=== PATIENT | female | born 2000 | race Caucasian/White ===

== ENCOUNTER 2019-03-08 22:09 | Emergency (ER) | payer OTHER ==
--- OUTSIDE RECORDS SUMMARY | 2019-03-08 22:31 | XMS REPORT | Summary of Care ---
:2000 Author Organization [facility] Address [address] [place] [address] Care Team Providers Name Role Phone Evans Arnold MD Primary Care Provider Reason for Visit Reason Comments Gynecologic Exam Encounter Details Date Type Department Care Team Description 01/27/2019 Office Visit [facility] Celeste Alexander Well woman exam (Primary Dx); Bebe Hartman PRINTING BINDERY ASSISTANT Encounter for surveillance of contraceptive pills [address] [place] [address] [place] [address] [phone] Allergies No Known Allergiesdocumented as of this encounter (statuses as of 01/27/2019) Medications Medication Sig Dispensed Refills Start Date End Date Status Levonorgestrel-Ethin Take 1 Tab by mouth 84 Tab 0 01/13/2019 Active yl Estrad 0.1-20 DAILY. Patient needs MG-MCG Oral Tab an appointment before any more refills will be given. documented as of this encounter (statuses as of 01/27/2019) Active Problems No known active problemsdocumented as of this encounter (statuses as of 2018) Immunizations Name Administration Dates Next Due Influenza (IM) Preservative Free 03/26/2018 documented as of this encounter Social History Tobacco Use Types Packs/Day Years Used Date Never Smoker Smokeless Tobacco: Never Used Alcohol Use Drinks/Week oz/Week Comments No 0 Standard drinks or equivalent 0.0 Sex Assigned at Date Recorded Not on file Job Start Date Occupation Industry Not on file Not on file Not on file Travel History Travel Start Travel End No recent travel history available. documented as of this encounter Last Filed Vital Signs Vital Sign Reading Time Taken Comments Blood Pressure 122/80 01/27/2019 1:55 PM EDT Pulse - - Temperature - - Respiratory Rate - - Oxygen Saturation - - Inhaled Oxygen Concentration - - Weight 100.2 kg (221 lb) 01/27/2019 1:55 PM EDT Height 162.6 cm (5' 4") 01/27/2019 1:55 PM EDT Body Mass Index 37.93 01/27/2019 1:55 PM EDT documented in this encounter Progress Notes Celeste Alexander CRNP - 01/27/2019 2:00 PM EDT PATIENT: Fauzia Brody : 2000 DATE OF SERVICE: 01/27/2019 Chief Complaint Patient presents with Gynecologic Exam Subjective SUBJECTIVE: Fauzia Brody is 19-y.o. female who presents for routine women's health maintenance. Patient reports no gynecologic complaints. On oral contraceptive pill and doing well with this. Not SA and neverhas been. Getting in October. 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 History reviewed. No pertinent past medical history. Past Surgical History: Procedure Laterality Date TONSILLECTOMY History reviewed. No pertinent family history. Current Outpatient Medications Medication Sig Levonorgestrel-Ethinyl Estrad 0.1-20 MG-MCG Oral Tab Take 1 Tab by mouth DAILY. Patient needsan appointment before any more refills will be given. No current facility-administered medications for this visit. No Known Allergies Social History Socioeconomic History Marital status: Single Spouse name: Not on file Number of children: Not on file Years of education: Not on file Highest education level: Not on file Occupational History Not on file Social Needs Financial resource strain: Not on file Food insecurity: Worry: Not on file Inability: Not on file Transportation needs: Medical: Not on file Non-medical: Not on file Tobacco Use Smoking status: Never Smoker Smokeless tobacco: Never Used Substance and Sexual Activity Alcohol use: No Alcohol/week: 0.0 standard drinks Drug use: No Sexual activity: Never Lifestyle Physical activity: Days per week: Not on file Minutes per session: Not on file Stress: Not on file Relationships Social connections: Talks on phone: Not on file Gets together: Not on file Attends taoism service: Not on file Active member of club or organization: Not on file Attends meetings of clubs or organizations: Not on file Relationship status: Not on file Intimate partner violence: Fear of current or ex partner: Not on file Emotionally abused: Not on file Physically abused: Not on file Forced sexual activity: Not on file Other Topics Concern Not on file Social History Narrative Not on file REVIEW OF SYSTEMS: ROS: No TIA's or unusual headaches, no dysphagia. No prolonged cough. No dyspnea or chest pain on exertion. No abdominal pain, change in bowel habits, black or bloody stools. No urinary tract symptoms. No new or unusual musculoskeletal symptoms. Normal menses, no abnormal vaginal bleeding, discharge or unexpected pelvic pain. No new breast lumps, breast pain or nipple discharge. Objective PHYSICAL EXAMINATION: VITALS: BP 122/80 | Ht 5' 4" (1.626 m) | Wt 221 lb (100.2 kg) | LMP 2018 | BMI 37.93 kg/m Body mass index is 37.93 kg/m. GENERAL: alert, oriented, no acute distress. MENTAL STATUS: mental status: affect: normal. BREAST: Inspection negative. No nipple discharge or bleeding. No masses or tenderness. No axillary nodes or masses.. ABDOMEN: soft, non tender, without masses or organomegaly. ASSESSMENT: ICD-9-CM ICD-10-CM 1. Well woman exam V72.31 Z01.419 2. Encounter for surveillance of contraceptive pills V25.41 Z30.41 Plan PLAN: All questions answered. Discussed healthy lifestyle modifications. 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 Continue oral contraceptive pill. Follow up in 1 year. Author: HAO Gil 01/27/2019 14:17 documented in this encounter Plan of Treatment Health Maintenance Due Date Last Done Comments PAP SMEAR 2000 DEPRESSION SCREENING 2010 HIV SCREENING 2013 HPV IMMUNIZATION SERIES (1 - 2013 Female 3-dose series) INFLUENZA VACCINE (#1) 2018 03/26/2018 MENINGOCOCCAL VACCINE IMM Aged Out No longer eligible based on patient's age to complete this topic PNEUMOCOCCAL 0-64 YRS Aged Out No longer eligible based on patient's age to complete this topic documented as of this encounter Results Not on filedocumented in this encounter Visit Diagnoses Diagnosis Well woman exam - Primary Routine general medical examination at a health care facility Encounter for surveillance of contraceptive pills Surveillance of previously prescribed contraceptive pill documented in this encounter Insurance Payer Benefit Plan / Subscriber ID Effective Dates Phone Address Type Group [place] xxxxxxxx 2019-Present Medicaid [place] (Home) [facility] [address] [facility] ([place]) [place] [address] documented as of this encounter
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
[2019-03-09] MEDS ORDERED: Cyclobenzaprine TAB* 10 MG PO ONE (00:04)
[2019-03-09] MEDS ORDERED: Ketorolac TAB * 10 MG TAB PO ONE (00:04)
[2019-03-09 01:22] VITALS: BP 141/99
== END 2019-03-09 01:23 | disposition home or self-care (01) ==
LOC: ED 22:09
DX: M54.9 Dorsalgia, unspecified (principal); M54.2 Cervicalgia; M62.838 Other muscle spasm; V43.62XA Car passenger injured in collision with other type car in traffic accident, initial encounter; Y92.9 Unspecified place or not applicable
CPT/HCPCS: 99283; A9270-GY